=== PATIENT | female | born 1965 | race Caucasian/White ===

== ENCOUNTER 2023-10-16 08:36 | Emergency (ER) | payer OTHER ==
[~2023-10-16] VITALS: Ht 160 cm; Wt 117.9 kg
[2023-10-16 08:36] VITALS: BP_SYST 157; PULSE 88; RESP 18; TEMP 97.1; O2SAT 99
[2023-10-16 09:09] LABS: BASOPHILS # (AUTO) 0.1 K/uL (0.0-0.2); BASOPHILS % (AUTO) 0.9 % (0.0-2.0); EOSINOPHILS # (AUTO) 0.2 K/uL (0.0-0.4); EOSINOPHILS % (AUTO) 2.9 % (0.0-4.0); HEMATOCRIT 40.4 % (36-48); HEMOGLOBIN 13.4 g/dL (12.0-16.0); LYMPHOCYTES # (AUTO) 2.2 K/uL (1.0-5.5); MEAN CORPUSCULAR HEMOGLOBIN 30 pg (27-31); MEAN CORPUSCULAR HGB CONC 33 % (32-36); MEAN CORPUSCULAR VOLUME 90 fL (79.0-98.0); MONOCYTES # (AUTO) 0.4 K/uL (0.0-1.0); MONOCYTES % (AUTO) 5.6 % (1.7-9.3); NEUTROPHILS # (AUTO) 3.7 K/uL (1.8-7.7); NEUTROPHILS % (AUTO) 56.6 % (40.0-70.0); PLATELET COUNT (AUTO) 168 K/uL (130-430); RED BLOOD CELL COUNT(AUTO) 4.49 MIL/uL (4.2-6.2); RED CELL DISTRIBUTION WIDTH 14.2 % (9.0-15.0); WHITE BLOOD COUNT (AUTO) 6.5 K/uL (4.8-10.8)
[2023-10-16 09:34] LABS: ANION GAP 14 (5-15); CALCIUM 9.1 mg/dL (8.4-11.0); CARBON DIOXIDE 21 mmol/L (23-29); CHLORIDE 107 mmol/L (98-107); CREATININE 0.95 mg/dL (0.55-1.30); GFR AFRICAN AMERICAN 78 mL/min (>90); GLUCOSE 94 mg/dL (74-106); POTASSIUM 3.7 mmol/L (3.5-5.1); SODIUM SERUM 142 mmol/L (136-145); UREA NITROGEN, BLOOD 17 mg/dL (8-21)
[2023-10-16 09:36] LABS: GFR NON AFRICAN-AMERICAN 65 mL/min (>90)
[2023-10-16] MEDS: ASPIRIN 325 MG TABLET PO ONE (09:52)
[2023-10-16 10:43] LABS: PROTHROMBIN TIME 10.7 SECS (9.5-12.5)
[2023-10-16] MEDS: ENOXAPARIN SODIUM 100 MG/ML SYRINGE SUBCUT ONE (10:48)
[2023-10-16] MEDS ORDERED: ATOR10TA68 PO (11:59)
[2023-10-16] MEDS: LABETALOL HCL 20 MG/4 ML CARTRIDGE IVP ONE (12:33)
[2023-10-16 12:55] LABS: INFLUENZA TYPE A Negative (NEGATIVE); INFLUENZA TYPE B NEGATIVE (NEGATIVE)
[2023-10-16 13:49] VITALS: BP_SYST 152; PULSE 74; RESP 16; TEMP 98.2; O2SAT 97
== END 2023-10-16 13:48 | disposition short-term general hospital (02) ==
LOC: SED 08:36
DX: R07.89 Other chest pain (principal); R06.02 Shortness of breath; Z79.899 Other long term (current) drug therapy; Z20.822 Contact with and (suspected) exposure to COVID-19
CPT/HCPCS: 99285; 96374; 71045; 87426; 80048; 83880; 85025; 85379; 85610; 85730; 84484; 36415; 93005; 87804 ×2; 96372; J1650